=== PATIENT | male | born 1985 | race Hispanic/Latino ===

== ENCOUNTER 2024-06-20 23:20 | Emergency (ER) | payer SELFPAY ==
--- NOTE | 2024-06-20 23:49 | EDPHYS ---
Physician Documentation [facility] Name: Kenji Britt Age: 38 yrs Sex: Male : 1985 Arrival Date: 06/20/2024 Time: 23:20 Bed 19 Private MD: ED Physician Daquan Joseph HPI: 06/20 23:46 This 38 yrs old Male presents to ER via Wheelchair with complaints of Leg Pain kb - right. 23:46 Pt is a 38 year old male who presents for pain to right lateral ankle that started 3 kb days ago. States he was driving for about 10 hours and the pain started then progressively got worse. States the pain is not in the joint at all. States he has had tendonitis like this before and believes that is what it is. Historical: - Allergies: 23:44 No Known Allergies; br2 - Immunization history:: Adult Immunizations not up to date. - Infectious Disease History:: Denies. - Social history:: Smoking status: Patient denies any tobacco usage or history of. ROS: 23:42 Constitutional: As per HPI kb Exam: 23:42 Constitutional: This is a well developed, well nourished patient who is awake, alert, kb and in no acute distress. Head/Face: Normocephalic, atraumatic. ENT: Moist Mucous membranes Cardiovascular: Regular rate Respiratory: Respirations even and unlabored. No increased work of breathing. Talking in full sentences Skin: Warm, dry with normal turgor. Normal color. Neuro: Awake and alert, GCS 15, oriented to person, place, time, and situation. 23:42 Musculoskeletal/extremity: Extremities: grossly normal except: noted in the right ankle: pain, tenderness, ROM: intact in all extremities, Circulation is intact in all extremities. Sensation intact. Weight bearing: can bear weight with assistance only, uses crutches, Vital Signs: 23:40 BP 128 / 90; Pulse 77; Resp 16; Temp 97.7; Pulse Ox 98% on R/A; Weight 77.11 kg; Height br2 5 ft. 9 in. ; Pain 10/10; 23:40 Body Mass Index 25.10 (77.11 kg, 175.26 cm) br2 23:40 Pain Scale: Adult br2 MDM: 23:25 Medical Screening Exam initiated kb 23:43 Differential diagnosis: tendonitis, sprain. Data reviewed: vital signs, nurses notes. kb Test considered but Not performed: X-ray: xray considered but pt has no bony tenderness. Counseling: I had a detailed discussion with the patient and/or guardian regarding the historical points, exam findings, and any diagnostic results supporting the discharge/admit diagnosis, the need for outpatient follow up, a orthopedic surgeon, to return to the emergency department if symptoms worsen or persist or if there are any questions or concerns that arise at home. Administered Medications: 23:59 Drug: Hydrocodone-Acetaminophen PO (7.5 mg-325 mg) 1 tabs PO once Route: PO; br2 06/21 00:10 Follow up: Response: Medication administered at discharge. br2 00:00 Drug: predniSONE PO 40 mg PO once Route: PO; br2 00:22 Follow up: Response: Medication administered at discharge. br2 00:23 Not Given (Patient Refused; PT TOOK IBUPROFEN 800MG PO PTAa): [id number] mg PO once br2 Disposition Summary: 06/20/24 23:48 Discharge Ordered Notes: Location: Home kb Condition: Stable kb Diagnosis - Pain to lateral right ankle kb Followup: kb - With: Emergency Department - When: As needed - Reason: Worsening of condition Followup: kb - With: Private Physician - When: 2 - 3 days - Reason: Recheck today's complaints, Continuance of care, Re-evaluation by your physician Discharge Instructions: - Discharge Summary Sheet kb - Ankle Pain kb Forms: - Medication Reconciliation Form kb - Antibiotic Education kb - Prescription Opioid Use kb - Patient Portal Instructions kb - Leadership Thank You Letter kb - Work release form br2 Prescriptions: - Prednisone 20 mg Oral Tablet - take 1 tablet ORAL route once daily for 5 days; 5 tablet; Refills: 0, Product kb Selection Permitted - Diclofenac Sodium 75 mg Oral tablet, delayed release (enteric coated) - take 1 tablet ORAL route 2 times per day As needed; 30 tablet; Refills: 0, kb Product Selection Permitted Signatures: Sarah Mccloud FNP-C FNP-Quynh Bustillos RN RN br2
--- NOTE | 2024-06-20 23:49 | ER ---
Nurse's Notes [facility] Name: Kenji Britt Age: 38 yrs Sex: Male : 1985 Arrival Date: 06/20/2024 Time: 23:20 Bed 19 Private MD: Diagnosis: Pain to lateral right ankle Presentation: 06/20 23:40 Chief complaint: Patient states: SUDDEN ONSET OF RIGHT ANKLE, HURTS TO MOVE. DENIES br2 INJURY. Coronavirus screen: Client denies travel out of the [place] in the last 14 days. Ebola Screen: Patient negative for fever greater than or equal to 101.5 degrees Fahrenheit, and additional compatible Ebola Virus Disease symptoms Patient denies exposure to infectious person. Initial Sepsis Screen: Does the patient meet any 2 criteria? No. Patient's initial sepsis screen is negative. Does the patient have a suspected source of infection? No. Patient's initial sepsis screen is negative. Risk Assessment: Do you want to hurt yourself or someone else? Patient reports no desire to harm self or others. Onset of symptoms. 23:40 Method Of Arrival: Wheelchair br2 23:40 Acuity: NANCY 4 br2 Triage Assessment: 23:44 General: Appears in no apparent distress. comfortable, Behavior is calm, cooperative. br2 Pain: Complains of pain in lateral side of right foot, right lateral malleolus and dorsum of right foot Pain does not radiate. Pain currently is 10 out of 10 on a pain scale. EENT: No signs and/or symptoms were reported regarding the EENT system. Neuro: Espinal Agitation-Sedation Scale (RASS): 0 - Alert and Calm Level of Consciousness is awake, alert, Oriented to person, place, time, situation. Cardiovascular: Capillary refill < 3 seconds. Respiratory: Airway is patent Respiratory effort is even, unlabored, Respiratory pattern is regular, symmetrical. GI: No signs and/or symptoms were reported involving the gastrointestinal system. : No signs and/or symptoms were reported regarding the genitourinary system. Derm: No signs and/or symptoms reported regarding the dermatologic system. Musculoskeletal: Reports pain in lateral side of right foot and right lateral malleolus. Historical: - Allergies: 23:44 No Known Allergies; br2 - Immunization history:: Adult Immunizations not up to date. - Infectious Disease History:: Denies. - Social history:: Smoking status: Patient denies any tobacco usage or history of. Screenin:40 [facility] ED Fall Risk Assessment (Adult) History of falling in the last 3 months, br2 including since admission No falls in past 3 months (0 pts) Confusion or Disorientation No (0 pts) Intoxicated or Sedated No (0 pts) Impaired Gait No (0 pts) Mobility Assist Device Used No (0 pt) Altered Elimination No (0 pt) Score/Fall Risk Level 0 - 2 = Low Risk Oriented to surroundings. Abuse screen: Denies threats or abuse. Denies injuries from another. Nutritional screening: No deficits noted. Tuberculosis screening: No symptoms or risk factors identified. Vital Signs: 23:40 BP 128 / 90; Pulse 77; Resp 16; Temp 97.7; Pulse Ox 98% on R/A; Weight 77.11 kg; Height br2 5 ft. 9 in. ; Pain 10/10; 23:40 Body Mass Index 25.10 (77.11 kg, 175.26 cm) br2 23:40 Pain Scale: Adult br2 ED Course: 23:23 Patient arrived in ED. ra3 23:25 Sarah Mccloud FNP-C is PHCP. kb 23:25 Daquan Joseph MD is Attending Physician. kb 23:37 Quynh Fragoso RN is Primary Nurse. br2 23:40 Patient has correct armband on for positive identification. Bed in low position. Call br2 light in reach. Side rails up X 1. Provided Education on: PLAN OF CARE. 23:44 Triage completed. br2 06/21 00:10 No provider procedures requiring assistance completed. Patient did not have IV access br2 during this emergency room visit. Administered Medications: 06/20 23:59 Drug: Hydrocodone-Acetaminophen PO (7.5 mg-325 mg) 1 tabs PO once Route: PO; br2 06/21 00:10 Follow up: Response: Medication administered at discharge. br2 00:00 Drug: predniSONE PO 40 mg PO once Route: PO; br2 00:22 Follow up: Response: Medication administered at discharge. br2 00:23 Not Given (Patient Refused; PT TOOK IBUPROFEN 800MG PO PTAa): [id number] mg PO once br2 Medication: 00:10 VIS not applicable for this client. br2 Outcome: 06/20 23:48 Discharge ordered by . evita 06/21 00:10 Discharged to home via wheelchair, br2 Condition: good Discharge instructions given to patient, Instructed on discharge instructions, follow up and referral plans. medication usage, Demonstrated understanding of instructions, follow-up care, medications, Prescriptions given X 2, 00:23 Patient left the ED. br2 Signatures: Sarah Mccloud FNP-Khushbu ESTRADA-Kathie De León ra3 Quynh Fragoso RN RN br2 Corrections: (The following items were deleted from the chart) 00:23 06/20 23:59 Ibuprofen PO 600 mg PO br2 br2 06/21 00:23 00:10 Response: Medication administered at discharge. br2 br2
[2024-06-20] MEDS ORDERED: predniSONE 20 MG TAB ONE (23:54)
[2024-06-20] MEDS ORDERED: IBUPROFEN 200 MG TAB PO ONE (23:55)
[2024-06-20] MEDS ORDERED: HYDROCODONE/APAP 7.5/325 MG TAB ONE (23:55)
[2024-06-20] MEDS ORDERED: IBUPROFEN 400 MG TAB ONE (23:55)
[2024-06-21 00:30] VITALS: BP 128/90; TEMP 97.7; O2SAT 98
== END 2024-06-21 00:23 | disposition home or self-care (01) ==
LOC: ER 23:20
DX: M25.571 Pain in right ankle and joints of right foot (principal)
CPT/HCPCS: 99283; J7512

== ENCOUNTER 2024-06-24 12:24 | Emergency (ER) | payer SELFPAY ==
--- NOTE | 2024-06-24 12:54 | ER ---
Nurse's Notes [facility] Name: Kenji Britt Age: 38 yrs Sex: Male : 1985 Arrival Date: 06/24/2024 Time: 12:24 Bed IW1 Private MD: Diagnosis: Tendonitis Presentation: 06/24 12:46 Chief complaint: Patient states: STATES NEEDS MED REFILL FOR PREDNISONE. GIVEN FOR db "GOUT" AND TENDONITIS IN RIGHT ANKLE. Coronavirus screen: Client denies travel out of the [place] in the last 14 days. At this time, the client does not indicate any symptoms associated with coronavirus-19. Ebola Screen: Patient negative for fever greater than or equal to 101.5 degrees Fahrenheit, and additional compatible Ebola Virus Disease symptoms Patient denies exposure to infectious person. Patient denies travel to an Ebola-affected area in the 21 days before illness onset. No symptoms or risks identified at this time. Initial Sepsis Screen: Does the patient meet any 2 criteria? No. Patient's initial sepsis screen is negative. Does the patient have a suspected source of infection? No. Patient's initial sepsis screen is negative. Risk Assessment: Do you want to hurt yourself or someone else? Patient reports no desire to harm self or others. Onset of symptoms was June 24, 2024. 12:46 Method Of Arrival: Ambulatory db 12:46 Acuity: NANCY 5 db Triage Assessment: 12:46 General: Appears in no apparent distress. comfortable, Behavior is calm, cooperative. db Pain: Complains of pain in right ankle. Neuro: Level of Consciousness is awake, alert, obeys commands, Oriented to person, place, time, situation. Historical: - Allergies: 12:49 No Known Allergies; db - PMHx: 12:49 Gout; db - PSHx: 12:49 RIGHT HIP; db - Immunization history:: Adult Immunizations unknown. - Infectious Disease History:: Denies. - Social history:: Smoking status: Patient denies any tobacco usage or history of. Screenin:52 [facility] ED Fall Risk Assessment (Adult) History of falling in the last 3 months, db including since admission No falls in past 3 months (0 pts) Confusion or Disorientation No (0 pts) Intoxicated or Sedated No (0 pts) Impaired Gait Yes (1 pt) Mobility Assist Device Used Yes (1 pt) Altered Elimination No (0 pt) Score/Fall Risk Level 0 - 2 = Low Risk Oriented to surroundings, Maintained a safe environment. Abuse screen: Denies threats or abuse. Denies injuries from another. Nutritional screening: No deficits noted. Tuberculosis screening: No symptoms or risk factors identified. Assessment: 12:52 Reassessment: Patient appears in no apparent distress at this time. Patient and/or db family updated on plan of care and expected duration. Pain level reassessed. Patient is alert, oriented x 3, equal unlabored respirations, skin warm/dry/pink. SEE TRIAGE FOR INITIAL ASSESSMENT. Vital Signs: 12:46 BP 151 / 100; Pulse 50; Resp 14; Temp 97(TE); Pulse Ox 97% ; Weight 77.11 kg; Height 5 db ft. 9 in. ; 12:46 Body Mass Index 25.10 (77.11 kg, 175.26 cm) db ED Course: 12:26 Patient arrived in ED. im 12:27 Brandon Holguin MD is Attending Physician. ec2 12:49 Triage completed. db 12:51 Arm band placed on Patient placed in an exam room. db 12:52 Patient has correct armband on for positive identification. Provided Education on: db MEDICATION AND FOLLOWUP. 12:52 No provider procedures requiring assistance completed. Patient did not have IV access db during this emergency room visit. Administered Medications: No medications were administered Medication: 12:53 VIS not applicable for this client. db Outcome: 12:53 Discharge ordered by . ec2 13:21 Discharged to home ambulatory, db 13:21 Condition: stable 13:21 Discharge instructions given to patient, Instructed on discharge instructions, follow up and referral plans. Prescriptions given X 1, 13:21 Patient left the ED. db Signatures: Gretchen Chaparro RN RN Laine Cat im Brandon Holguin MD MD ec2 Corrections: (The following items were deleted from the chart) 12:51 12:46 Chief complaint: Patient states: STATES NEEDS MED REFILL FOR PREDNISONE. GIVEN db FOR "GOUT" IN RIGHT ANKLE db 12:51 12:46 77.11 kg; Height 5 ft. 9 in.; BMI: 25.1; db db 12:53 12:52 Patient has correct armband on for positive identification. Bed in low position. db Call light in reach. Side rails up X 1. db
--- NOTE | 2024-06-24 12:54 | EDPHYS ---
Physician Documentation [facility] Name: Kenji Britt Age: 38 yrs Sex: Male : 1985 Arrival Date: 06/24/2024 Time: 12:24 Bed IW1 Private MD: ED Physician Brandon Holguin HPI: 06/24 12:55 This 38 yrs old Male presents to ER via Ambulatory with complaints of ec2 Medication Refill - prednisone. 12:55 Patient arrives today for evaluation of medication refill. Patient reports he was ec2 recently diagnosed with tendinitis and has been improving and recently completed his prednisone and wanted additional prednisone as he still has swelling. Denies any other falls injuries or trauma.. Historical: - Allergies: 12:49 No Known Allergies; db - PMHx: 12:49 Gout; db - PSHx: 12:49 RIGHT HIP; db - Immunization history:: Adult Immunizations unknown. - Infectious Disease History:: Denies. - Social history:: Smoking status: Patient denies any tobacco usage or history of. ROS: 12:55 Constitutional: as per hpi ec2 Exam: 12:55 Constitutional: GEN: NAD Head: atraumatic Eyes: EOMI Ears: External ears are ec2 normal. CV: regular rate LUNGS: no respiratory distress ABD: non-distended SKIN: no evidence of rashes MSK: Right lower extremity with TTP to the lateral ankle joint, intact neurovascular status Vital Signs: 12:46 BP 151 / 100; Pulse 50; Resp 14; Temp 97(TE); Pulse Ox 97% ; Weight 77.11 kg; Height 5 db ft. 9 in. ; 12:46 Body Mass Index 25.10 (77.11 kg, 175.26 cm) db MDM: 12:36 Medical Screening Exam initiated ec2 12:55 Data reviewed: vital signs, nurses notes. ED course: Patient arrives today for ec2 evaluation of a medication refill. Examination is revealing for well-appearing nontoxic dividual's otherwise in no acute distress with a reassuring examination. Will prescribe the patient prednisone and have the patient follow-up PCP. Return precautions given. Administered Medications: No medications were administered Disposition Summary: 06/24/24 12:53 Discharge Ordered Notes: Location: Home ec2 Condition: Stable ec2 Diagnosis - Tendonitis ec2 Followup: ec2 - With: Private Physician - When: - Reason: Re-evaluation by your physician Discharge Instructions: - Discharge Summary Sheet ec2 Forms: - Medication Reconciliation Form ec2 - Antibiotic Education ec2 - Prescription Opioid Use ec2 - Patient Portal Instructions ec2 - Leadership Thank You Letter ec2 Prescriptions: - Prednisone 20 mg Oral Tablet - take 2 tablets ORAL route once daily for 5 days; 10 tablet; Refills: 0, Product ec2 Selection Permitted Signatures: Gretchen Chaparro RN RN db Brandon Holguin MD MD ec2
[2024-06-24 13:47] VITALS: BP 151/100; TEMP 97; O2SAT 97
== END 2024-06-24 13:21 | disposition home or self-care (01) ==
LOC: ER 12:24
DX: M77.9 Enthesopathy, unspecified (principal)
CPT/HCPCS: 99283